=== PATIENT | male | born 1955 | race Caucasian/White ===

== ENCOUNTER 2016-12-15 16:21 | Emergency (ER) | payer BC ==
[2016-12-15] MEDS ORDERED: DIPH,PERTUS(ACELL)TETVAC-LF 0.5 ML VIAL IM ONE (18:09)
[2016-12-15] MEDS ORDERED: AMOXICILLIN 500MG STARTER PACK 3 CAP BTL PO STA (19:13)
--- NOTE | 2016-12-15 19:17 | ED ---
Wound/Laceration HPI - General Chief Complaint: Wound/Laceration Stated Complaint: Laceration on Face Time Seen by Provider: 12/15/16 17:47 Source: patient, RN notes reviewed Mode of arrival: ambulatory Limitations: no limitations - History of Present Illness Initial Comments: Patient is a 61 year old male with chief compliant of a left cheek laceration that went through into his mouth. Patient reports that he was cutting down a tree limb and the branch hit his mouth. Patient reports that when he tried to take a drink of water, it came through the whole on the side of the mouth. Patient reports tetanus is not up to date. He was sent her from urgent care as they were not able to take care of the laceration. Patient denies any allergies to medication. PAtient states that he has no loose teeth, or any other injury. - Related Data Home Medications Medication Instructions Recorded Confirmed Acetaminophen [Tylenol] 1,000 mg PO HS PRN 12/15/15 12/15/15 Aspirin 325 mg PO DIRECTED PRN 12/15/15 12/15/15 Biotin 5 mg PO DAILY 12/15/15 12/15/15 Calcium Carbonate [Tums] 500 mg PO DIRECTED PRN 12/15/15 12/15/15 Calcium/Magnesium/Zinc 1 each PO DAILY 12/15/15 12/15/15 [Lfiszbn-Cnyafqzrm-Oivr Tablet] Ginkgo Biloba Adelanto Extract [Ginkgo] 1 tab PO QID 12/15/15 12/15/15 Ibuprofen [Motrin] 200 - 400 mg PO DIRECTED PRN 12/15/15 12/15/15 Multivitamins, Thera [Multivitamin] 1 tab PO DAILY 12/15/15 12/15/15 Naproxen [Naprosyn] 250 mg PO DIRECTED PRN 12/15/15 12/15/15 Warner-3 Fatty Acids/Fish Oil [Fish 1 each PO DAILY 12/15/15 12/15/15 Oil 1,000 mg Softgel] Vit C/E/Zn/Coppr/Lutein/Zeaxan 1 each PO DAILY 12/15/15 12/15/15 [Preservision Areds 2 Softgel] Previous Rx's Medication Instructions Recorded HYDROcodone/APAP 5-325MG [[place] 5] 1 each PO Q6HR PRN #90 tab 12/24/15 Amoxicillin 500 mg PO Q8H #30 capsule 12/15/16 Allergies Allergy/AdvReac Type Severity Reaction Status Date / Time No Known Allergies Allergy Verified 12/15/16 17:04 Review of Systems ROS Statement: Those systems with pertinent positive or pertinent negative responses have been documented in the HPI. ROS Other: All systems not noted in ROS Statement are negative. Past Medical History Past Medical History: Eye Disorder, GERD/Reflux, Hypertension, Osteoarthritis ( OA), Skin Disorder, Thyroid Disorder Additional Past Medical History / Comment(s): 12/24/15 Pt admitted to floor s/p lumbar laminectomy discectomy L5-S1. 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 Other HX:herniated disk, "minor" hiatal hernia, L macular degeneration and L eye glaucoma, divericular disease, acne, History of Any Multi-Drug Resistant Organisms: None Reported Past Surgical History: Orthopedic Surgery Additional Past Surgical History / Comment(s): 12/24/15 lumbar laminectomy and discectomy L5-S1. Other surgical history: maryam cataracts with lens implants, oral surgery, colonoscopy. Past Anesthesia/Blood Transfusion Reactions: No Reported Reaction Past Psychological History: No Psychological Hx Reported Additional Psychological History / Comment(s): Pt resides alone. He is independent. He uses a cane to ambulate. Smoking Status: Former smoker Past Alcohol Use History: None Reported Additional Past Alcohol Use History / Comment(s): quit smoking 1986, smoked for 16 yrs-smoked 1 PPD, previous ETOH 30 yrs ago Past Drug Use History: None Reported - Past Family History Brother(s) Family Medical History: Cancer Additional Family Medical History / Comment(s): Bone cancer. Father Family Medical History: Cancer Additional Family Medical History / Comment(s): Father had prostate cancer with metatasis and of this. General Exam - General Exam Comments Initial Comments: Pleasant well appearing 61 year old male, no acute distress. Limitations: no limitations General appearance: alert, in no apparent distress Head exam: Present: atraumatic, normocephalic, normal inspection Eye exam: Present: normal appearance, PERRL, EOMI. Absent: scleral icterus, conjunctival injection, periorbital swelling ENT exam: Present: mucous membranes moist, TM's normal bilaterally. Absent: normal exam (3 cm linear laceration over left cheek. Laceration is through and through, and evidence of 2 cm laceration over inner cheek in oral mucosa. ), normal oropharynx (2cm linear cheek laceration. ) Neck exam: Present: normal inspection. Absent: tenderness, meningismus, lymphadenopathy Respiratory exam: Present: normal lung sounds bilaterally. Absent: respiratory distress, wheezes, rales, rhonchi, stridor Cardiovascular Exam: Present: regular rate, normal rhythm, normal heart sounds. Absent: systolic murmur, diastolic murmur, rubs, gallop, clicks GI/Abdominal exam: Present: soft, normal bowel sounds. Absent: distended, tenderness, guarding, rebound, rigid Extremities exam: Present: normal inspection, full ROM, normal capillary refill. Absent: tenderness, pedal edema, joint swelling, calf tenderness Back exam: Present: normal inspection Neurological exam: Present: alert, oriented X3, CN II-XII intact Psychiatric exam: Present: normal affect, normal mood Skin exam: Present: warm, dry, intact, normal color. Absent: rash Course Vital Signs 12/15/16 12/15/16 17:02 19:21 Temperature 98.1 F 97.9 F Pulse Rate 90 87 Respiratory 20 16 Rate Blood Pressure 179/81 118/87 O2 Sat by Pulse 98 98 Oximetry Procedures - Laceration Laceration #1 Site: face (left cheek, through and thorugh) Size (cm): 3 Description: linear Depth: [id number] Anesthetic Used: benzocaine 0.25% Anesthesia Technique: local infiltration Amount (mls): 6 Pre-repair: wound explored, irrigated extensively Type of Sutures: nylon, other (RAPID absorbing) Size of Sutures: 6-0, other (6-0 rapid absorbing, 4 sutures. ) Number of Sutures: 6 Technique: simple, interrupted (4 buried simple interrupted. ) Patient Tolerated Procedure: well, no complications Medical Decision Making - Medical Decision Making Patient is a 61 year old male with a left through and through cheek laceration. Patient given external and internal sutures, and wound was irrigated copiously 1L of with sterile water.Patient given tetanus vaccination, and given amoxicillin starter pack. PAtient did forget to get written prescription, patient was called and informed and will pickling operator prescription tomorrow at the front of the EC. Disposition Clinical Impression: Facial laceration, Laceration of oral cavity Disposition: HOME SELF-CARE Condition: Good Instructions: Facial Laceration (ED) Additional Instructions: Please return to the emergency room in 7 days to have sutures removed. Please leave wound covered for the first 24-48 hours and then leave open to air after that time. Please use clean soap and water to clean the suture area to prevent scabbing over the top of your sutures. Please watch for any signs of infection which may include but not limited to increased pain, swelling, redness, fever or chills. Please return to the emergency room if any signs of infection do occur. Please return to the emergency room for any other concerns or complications. Allow absorbable sutures to dissolve on their own. Have soft foods for the next 48 hours. Prescriptions: Amoxicillin 500 mg PO Q8H #30 capsule Referrals: Jin Savage MD [Primary Care Provider] - 1-2 days Time of Disposition: 19:16
[2016-12-15 19:22] VITALS: BP 118/87; PULSE 87; RESP 16; TEMP 97.9
== END 2016-12-15 19:25 | disposition home or self-care (01) ==
LOC: EC 16:21
DX: S01.412A Laceration without foreign body of left cheek and temporomandibular area, initial encounter (principal); I10 Essential (primary) hypertension; M19.90 Unspecified osteoarthritis, unspecified site; E03.9 Hypothyroidism, unspecified; Z23 Encounter for immunization; Z87.891 Personal history of nicotine dependence; W45.8XXA Other foreign body or object entering through skin, initial encounter; W22.8XXA Striking against or struck by other objects, initial encounter; Y92.89 Other specified places as the place of occurrence of the external cause
CPT/HCPCS: 12013; 90471; 90715; 99282

== ENCOUNTER → 2021-01-06 | Outpatient (CLI) | payer MEDICARE, BC ==
--- NOTE | 2021-01-06 18:53 | MR ---
EXAMINATION TYPE: MR kidney wo/w con DATE OF EXAM: 01/06/2021 COMPARISON: Outside renal ultrasound December 15, 2020. HISTORY: Abnormal US CONTRAST: Standard multiplanar, multisequence MRI departmental protocol utilizing 7.5 mL intravenous Gadavist g adolinium contrast. Imaging performed of the abdomen focusing on bilateral kidneys. Diffusion weight ed imaging performed. FINDINGS: Kidneys: Renal size are symmetric and felt within normal limits. Corresponding to recent outside ultr asound there is a simple appearing 2.1 x 1.8 x 1.7 cm simple appearing thin-walled cyst laterally mid pole level right kidney. Remainder right kidney shows no concerning solid or cystic mass or hydroneph rosis. Corresponding to recent ultrasound there is more concerning partially exophytic 1.6 x 1.5 x 1.5 cm le sai posteriorly upper pole left kidney coronal image 26 and axial series 601 image 39 that shows sli ght T1 hypointensity and heterogeneous T2 hyperintensity. Postcontrast imaging shows some rounded 9 m m area of enhancement along the posterior lateral aspect of lesion. Delayed coronal postcontrast imag es show second curvilinear area of enhancement inferior medially on image 76. There is additional sub centimeter thin-walled cyst seen inferior to this image 36 series 601 corresponding to postcontrast c oronal image 68. Remainder of left kidney shows no hydronephrosis. Other: Lung bases remain clear. The liver, gallbladder, spleen, pancreas, and both adrenal glands appear wit hin normal limits. There is no suspicious small or large bowel dilatation. No greater than 3.0 cm AAA . No concerning intra-abdominal ascites. No greater than 1 cm abdominal adenopathy. Slight scoliotic curvature to the spine with disc space narrowing and endplate changes L5-S1 level. IMPRESSION: There is confirmation of 2.1 cm lesion laterally mid pole of the right kidney, dynamic MR I is consistent with benign thin-walled cyst. There is however more concerning partially exophytic 1. 6 cm cystic lesion posteriorly upper pole left kidney as there is some heterogeneous central solid en hancement. Cystic neoplasm cannot be excluded. Advise surgical and/or ablation surgical referral to [facility].
== END ==
LOC: RADMRIMAIN 08:38
PROVIDERS: ATTEND Urology
DX: N28.9 Disorder of kidney and ureter, unspecified (principal)
CPT/HCPCS: 74183; A9585

== ENCOUNTER → 2021-04-21 | Outpatient (CLI) | payer MEDICARE, BC ==
--- NOTE | 2021-04-21 11:22 | FL ---
EXAMINATION TYPE: FL barium swallow w video DATE OF EXAM: 04/21/2021 MODIFIED SWALLOW / DEGLUTITION STUDY CLINICAL HISTORY: Dysphagia. TECHNIQUE: Deglutition study is performed utilizing thin liquid barium, honey and nectar thick liqui d barium, barium thick applesauce, and barium coated cracker. Total fluoroscopic time 42 seconds. COMPARISON: None. FINDINGS: The oral and pharyngeal phases show satisfactory initiation and propagation with all modali ties tested. Normal mastication is seen with solid modalities tested. There is no evidence of penet ration or aspiration with any modality tested. No significant pharyngeal residue was appreciated. IMPRESSION: Normal deglutition study. Please refer to speech therapist notes for further details if necessary.
--- NOTE | 2021-04-21 12:17 | FL ---
Modified barium swallow. HISTORY: Dysphagia. Modified barium swallow was performed with the department of speech pathology. The patient was prese nted with various consistencies of barium. There is no evidence for aspiration or penetration. Small ventral spurs at C5-6 and C6-7. Full repor t is to follow from the department of speech pathology. fl time 42 secs. Impression: Normal study.
== END | disposition home or self-care (01) ==
LOC: RADFLMAIN 10:48
PROVIDERS: ATTEND Otolaryngology
DX: R13.10 Dysphagia, unspecified (principal)
CPT/HCPCS: 74230

== ENCOUNTER → 2022-01-04 | Outpatient (CLI) | payer MEDICARE, BC ==
--- NOTE | 2022-01-04 19:05 | MR ---
MR kidney with and without contrast HISTORY: Left renal mass Multiplanar multisequence and postcontrast images obtained through the kidneys. She received 8 cc Moreno avist IV. Correlation to prior MR kidney 01/06/2021, renal ultrasound dated 12/15/2020 The left upper pole renal mass shows a stable appearance. Signal is T1 intermediate, T2 bright with i nternal septations. There is enhancement following contrast administration. Lesion is stable in size measuring approximately 2.1 x 2.6 cm on postcontrast images. Cortical cyst in exophytic location the right kidney is again seen. Small cortical cyst present at th e upper pole the left kidney is again noted. There is no retroperitoneal adenopathy. Adrenal glands, pancreas, spleen and gallbladder are unremarkable, splenule is again noted. Signal lo ss on out of phase imaging within the liver suggests hepatic steatosis. There is no bowel obstruction or ascites. Aorta shows normal caliber. Lung bases show no effusion. IMPRESSION: Upper pole left renal mass is stable.
== END | disposition home or self-care (01) ==
LOC: RADMRIMAIN 11:47
PROVIDERS: ATTEND Urology
DX: N28.89 Other specified disorders of kidney and ureter (principal)
CPT/HCPCS: 74183; A9585

== ENCOUNTER → 2023-02-02 | Outpatient (CLI) | payer MEDICARE, BC ==
--- NOTE | 2023-02-02 20:51 | MR ---
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 Left renal mass. COMPARISON: MRI kidney 01/04/2022. TECHNIQUE: Multiplanar multi-sequence imaging was performed without contrast. Post contrast imaging was performed. Post IV contrast subtraction images were also submitted for review. IV Contrast: 9 cc Gadavist FINDINGS: LOWER CHEST: No gross irregularity. ABDOMEN Liver: Unremarkable. Gallbladder and Bile ducts: Unremarkable. Pancreas: Unremarkable. Spleen: Unremarkable. Adrenal glands: Unremarkable. Kidneys: Right renal cyst simple appearing high T2 signal cyst measuring 2.7 x 2.1 cm. Stable compare d to immediate prior and possibly fractionally larger than 2020, left upper pole renal mass measuring 20 x 19 mm. Stomach and Bowel: No bowel obstruction. Scattered colonic diverticula are present. Peritoneum: No evidence of pneumoperitoneum or free fluid. Mild increased signal compatible with mi sty mesentery on CT. Stable from immediate prior. Vasculature: . No aortic aneurysm. Musculoskeletal: The osseous structures appear intact. Lymph Nodes: No gross evidence for lymphadenopathy. Abdominal wall: Unremarkable. IMPRESSION: Left upper pole renal mass which may be fractionally larger compared to 2020 and stable to immediate prior. Continued attention on follow-up imaging
== END | disposition home or self-care (01) ==
LOC: RADMRIMAIN 17:51
PROVIDERS: ATTEND Urology
DX: D41.02 Neoplasm of uncertain behavior of left kidney (principal); N28.89 Other specified disorders of kidney and ureter
CPT/HCPCS: 74183; A9585

== ENCOUNTER → 2023-08-17 | Outpatient (CLI) | payer MEDICARE, BC ==
--- NOTE | 2023-08-17 19:17 | MR ---
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 COMPARISON: MRI 02/02/2023 TECHNIQUE: Multiplanar multi-sequence imaging was performed without contrast. Post contrast imaging was performed. Post IV contrast subtraction images were also submitted for review. IV Contrast: 8 cc Gadavist FINDINGS: LOWER CHEST: No gross irregularity. ABDOMEN Liver: Unremarkable. Gallbladder and Bile ducts: Unremarkable. Pancreas: Unremarkable. Spleen: Unremarkable. Adrenal glands: Unremarkable. Kidneys: Right renal cyst simple appearing high T2 signal cyst measuring 2.7 x 2.1 cm. Stable compared to imme diate prior and possibly fractionally larger than 2020. Left: Upper pole renal mass measuring 20 x 19 mm is not significantly changed in size. There is post postcontrast enhancement present. Stomach and Bowel: No bowel obstruction. Scattered colonic diverticula are present. Peritoneum: No evidence of pneumoperitoneum or free fluid. Mild increased signal compatible with mi sty mesentery on CT. Stable from immediate prior. Vasculature: . No aortic aneurysm. Musculoskeletal: The osseous structures appear intact. Lymph Nodes: No gross evidence for lymphadenopathy. Abdominal wall: Unremarkable. IMPRESSION: Left upper pole enhancing renal mass which may be fractionally larger compared to 2020 and is stable to immediate prior . Continued surveillance recommended.
== END | disposition home or self-care (01) ==
LOC: RADMRIMAIN 16:04
PROVIDERS: ATTEND Urology
DX: D41.02 Neoplasm of uncertain behavior of left kidney (principal); N28.89 Other specified disorders of kidney and ureter
CPT/HCPCS: 74183; A9585

== ENCOUNTER → 2024-06-05 | Outpatient (CLI) | payer MEDICARE ==
--- NOTE | 2024-06-27 13:41 | MR ---
Patient: Roel Gunn J Ordering Physician: Unknown, Unknown ID: [id number] Phone, Pager: Jayme ne: N/A Pager: N/A : [phone] Age/Gender: 69Y, M Primary Location: N/A Procedure: MR KIDNEY WO/W CON Study Date: 06/05/2024 5:58:23 AM EXAMINATION TYPE: MR kidney wo/w con DATE OF EXAM: 06/20/2024 8:09 AM CLINICAL INDICATION: left upper pole neoplasm. COMPARISON: 08/18/2023 TECHNIQUE: Multiplanar multi-sequence imaging was performed without contrast. Post contrast imaging was performed. Post IV contrast subtraction images were also submitted for review. IV Contrast: 8 cc Gadavist. FINDINGS: LOWER CHEST: No gross irregularity. ABDOMEN Liver: Unremarkable. Gallbladder and Bile ducts: Unremarkable. Pancreas: Unremarkable. Spleen: Unremarkable. Adrenal glands: Unremarkable. Kidneys: Right renal cyst simple appearing high T2 signal cyst measuring 23 mm on coronal and stable. Left: Upper pole renal mass measuring 21 x 17 mm is not significantly changed in size. There is post postcontrast enhancement present. Stomach and Bowel: No bowel obstruction. Scattered colonic diverticula are present. Peritoneum: No ev idence of pneumoperitoneum or free fluid. Mild increased signal compatible with jacqui mesentery on CT . Stable from immediate prior. Vasculature: . No aortic aneurysm. Musculoskeletal: The osseous structures appear intact. Multilevel degeneration changes throughout the spine. Lymph Nodes: No gross evidence for lymphadenopathy. Abdominal wall: Unremarkable. IMPRESSION: 1. Stable Left upper pole enhancing renal mass to immediate prior. 2. Colonic diverticulosis.
== END | disposition home or self-care (01) ==
LOC: RADMRIMAIN 06:20
PROVIDERS: ATTEND Urology
DX: D41.02 Neoplasm of uncertain behavior of left kidney (principal); N28.89 Other specified disorders of kidney and ureter; K57.30 Diverticulosis of large intestine without perforation or abscess without bleeding
CPT/HCPCS: 74183; A9585